=== PATIENT | male | born 1975 | race Caucasian/White ===

== ENCOUNTER 2017-01-20 21:00 | Inpatient (IN) | payer SELFPAY ==
--- NOTE | ~2017-01-20 | HP ---
History And Physical [place] [id number] [facility] [place]. [address] NAME: MIHAELA PLUNKETT : 75 STATUS : ADM Whitney PAT#: [id number] AGE: 41 ADM/REG DATE : 01/20/17 MR#: [id number] REPORT SERV DATE: 01/21/17 DICTATED BY: ESTUARDO MAGAÑA DATE: 01/21/17 REPORT STATUS : Draft TRANSCRIBED BY: MODL DATE: 01/21/17 DATE OF ADMISSION: 01/20/2017 CHIEF COMPLAINT: Abdominal pain, nausea, and vomiting. HISTORY OF PRESENT ILLNESS: This is a 41-year-old male with recurrent episodes of acute pancreatitis due to his alcohol abuse, with a history of uncontrolled hypertension, presents to the emergency room at [facility] with the above-mentioned complaint. History is obtained from the patient and reviewing data available on the [employer] system. According to Mr. Plunkett, he had been in his usual state of health until about two days ago when he started experiencing epigastric and right upper quadrant pain. He is familiar with this pain of pancreatitis since he has had so many previous episodes. He decided to come to the emergency room to be evaluated. In the emergency room, initial workup revealed a CT scan of his abdomen showing features of acute pancreatitis with small pseudocyst in the tail and another small pseudocyst behind the head of the pancreas. His lipase was elevated at 907 as well and Hospitalist Service was asked to admit him for further evaluation and treatment. At the time of my evaluation, he denied any chest pain, palpitations, or orthopnea. He had no cough, hemoptysis, night sweats, or weight loss. He has not had any recent falls or loss of consciousness. No history of fevers or chills, but he did have severe nausea and vomiting. Vomitus was mostly clear, and he had maybe a teaspoon full of blood with one episode. He has not had that since. He denied any hematochezia or hematuria. No other history of recent travel or exposures other than those mentioned above. PAST MEDICAL HISTORY: Significant for chronic recurrent alcoholic pancreatitis, alcohol abuse, tobacco use, and uncontrolled hypertension. SOCIAL HISTORY: He has about [id number] history of smoking, continues to do so. He drinks beer mostly, but has binge drinking episodes. He went on a four-day binge drinking episode where he drank three or four 750 mL bottles of vodka. He denied any other recreational drug use. 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 FAMILY HISTORY: Noncontributory. MEDICATIONS: At home were reviewed by me in the chart today and reordered by me. REVIEW OF SYSTEMS: As in history of present illness. All other systems were reviewed in detail and quite unremarkable. PHYSICAL EXAMINATION: GENERAL: This is a pleasant 41-year-old, not in any acute distress. History And Physical [address] [address] NAME: MIHAELA PLUNKETT : 75 STATUS : ADM Whitney PAT#: [id number] AGE: 41 ADM/REG DATE : 01/20/17 MR#: [id number] REPORT SERV DATE: 01/21/17 DICTATED BY: ESTUARDO MAGAÑA DATE: 01/21/17 REPORT STATUS : Draft TRANSCRIBED BY: NADINE DATE: 01/21/17 HEENT: Head is atraumatic, normocephalic. He is alert, awake, oriented to time, place, and person. His pupils are equal and reacting to light and accommodating. External ocular muscles are intact. Membranes are moist and pink. Sclerae are nonicteric. NECK: Supple with no jugular venous distention, lymphadenopathy, or thyromegaly. LUNGS: Clear to auscultation with no wheezes, rubs, or crackles. HEART: Heart sounds were regular with no murmurs, rubs, or gallops. ABDOMEN: Soft. There is tenderness in both the epigastric and right upper quadrant regions. Has no guarding or rigidity. There is no rebound tenderness. EXTREMITIES: Showed no cyanosis, clubbing, or edema. NEUROLOGIC: Grossly intact although he has a fine tremor what he says is probably due to his alcohol withdrawal. He says his last drink was two days ago. He does appear a little restless and has tremors. VITAL SIGNS: Today showed a temperature of 97.1, pulse 123, respirations 20 a minute, blood pressure was 150/98, and oxygen saturations were 98% breathing 2 L of oxygen via nasal cannula. LABORATORY DATA: Reviewed on the [employer] system showed a sodium of 135, potassium 3.8, chloride 94, CO2 of 28, BUN was 15, with a creatinine of 1.09, and glucose was 131. His alkaline phosphatase was 278, gamma-GT was 259, ALT 129, AST 146. Lipase was 907 today. CBC showed a normal white blood cell count, hemoglobin was 14.8, hematocrit 42.5, and platelet count was 314,000. His prothrombin time and INR were not performed today. Urinalysis did not reveal any gross abnormality at this time. Films of the CT scan of his abdomen and pelvis were reviewed by me on the PACS today and interpreted by me. Official radiology report was also reviewed. There is acute pancreatitis with small pseudocyst near the tail and another pseudocyst behind the head of the pancreas. A 12-lead EKG done in the emergency room was reviewed and interpreted by me. There is sinus rhythm with a rate of [address]-T changes. IMPRESSION: 1. Abdominal pain. 2. Acute pancreatitis with pseudocyst. 3. Intractable nausea and vomiting. 4. Uncontrolled hypertension. 5. Alcohol abuse. 6. Chronic alcoholic pancreatitis. 7. Tobacco use. PLAN: We will admit Mr. Plunkett to a telemetry bed for close monitoring. We will start him on aggressive volume resuscitation, keep him n.p.o. for now, and provide intravenous Zofran and Phenergan on an as-needed basis. We will start him on pain control with intravenous Dilaudid in small doses on an as-needed basis. We will also start him on blood pressure control with his home medications and provide intravenous hydralazine as well. We will place him on unfractionated heparin for DVT prophylaxis while here. He will be placed on alcohol withdrawal protocol. We will also go ahead and consult Gastroenterology Service to [facility] [address] [address] NAME: MIHAELA PLUNKETT : 75 STATUS : ADM Whitney PAT#: [id number] AGE: 41 ADM/REG DATE : 01/20/17 MR#: [id number] REPORT SERV DATE: 01/21/17 DICTATED BY: ESTUARDO MAGAÑA DATE: 01/21/17 REPORT STATUS : Draft TRANSCRIBED BY: MODL DATE: 01/21/17 see him as well. I have discussed the above plans with the patient, his questions were answered, and he is agreeable to the above recommendations. Hospitalist Service will be following him during his stay here. DICTATION ENDS HERE. /NADINE Estuardo Magaña M.D. / [id number] CC: Olivia Ga M.D.
--- NOTE | ~2017-01-20 | CN ---
Consultation Report [facility] [address] [place]. [address] NAME: MIHAELA PLUNKETT : 75 STATUS : ADM Whitney PAT#: [id number] AGE: 41 ADM/REG DATE : 01/20/17 MR#: [id number] REPORT SERV DATE: 01/22/17 DICTATED BY: SALOME HERRON DATE: 01/22/17 REPORT STATUS : Draft TRANSCRIBED BY: MODL DATE: 01/22/17 GI CONSULTATION DATE OF CONSULTATION: 01/21/2017 REASON FOR CONSULTATION: Pancreatitis. HISTORY OF PRESENT ILLNESS: Mr. Plunkett is a 41-year-old male with a history of alcohol and tobacco use and recurrent pancreatitis. He is also status post cholecystectomy. He came in with abdominal pain, nausea, vomiting, found to have a lipase of 2566. His hematocrit is 38.9, BUN is 19, bilirubin 2, AST 146, ALT 129, alkaline phosphatase 278. PAST MEDICAL HISTORY: Pancreatitis, recurrent; splenic hematoma. PAST SURGICAL HISTORY: Cholecystectomy. SOCIAL HISTORY: Alcohol and tobacco use, current. FAMILY HISTORY: Father with alcoholism and pancreatitis. Sister also with pancreatitis. MEDICATIONS: Reviewed. ALLERGIES: REVIEWED. PHYSICAL EXAMINATION: Patient is afebrile. His vital signs are stable. GENERAL: The patient is awake, alert, and oriented, in mild distress secondary to his abdominal discomfort. HEENT: Atraumatic, normocephalic. Minimal scleral icterus. Mucous membranes moist. CARDIAC: S1, S2. CHEST: Clear. ABDOMEN: Soft, tender to palpation diffusely with some voluntary guarding. No rebound. Bowel sounds normoactive. LABORATORY DATA: WBC 9.1, hemoglobin 13.3, hematocrit 38.9, platelets 288. Sodium 137, potassium 4.1, chloride 99, bicarb 30, BUN 19, creatinine 1.01, glucose 134. Bilirubin 2, AST 146, ALT 129, alkaline phosphatase 278, lipase 2566. IMPRESSION AND PLAN: Acute pancreatitis, most likely related to his alcohol and tobacco use. No evidence of obstruction. Check triglycerides for completeness. The patient denies any new medication. I will go ahead and increase his IV fluids to 250 to 300 mL an hour. He should be able to tolerate this fluid resuscitation. Continue to trend liver enzymes as well as his lipase clinical picture. Keep n.p.o. for now. Can consider advancing to clears once he is clinically improved, but be also cautious of the Consultation Report [place] [id number] [place] [address] NAME: MIHAELA PLUNKETT : 75 STATUS : ADM Whitney PAT#: [id number] AGE: 41 ADM/REG DATE : 01/20/17 MR#: [id number] REPORT SERV DATE: 01/22/17 DICTATED BY: SALOME HERRON DATE: 01/22/17 REPORT STATUS : Draft TRANSCRIBED BY: MODL DATE: 01/22/17 patient going into DT at some point of his hospitalization . /MODL Salome Herron MD / [id number] CC: Dallin Simons M.D.
--- NOTE | ~2017-01-20 | DS ---
Discharge Summary [facility] [address] [facility] [place]. [address] NAME: MIHAELA WALL : 75 STATUS : DIS IN PAT#: [id number] AGE: 41 ADM/REG DATE : 01/20/17 MR#: [id number] REPORT SERV DATE: 01/26/17 DICTATED BY: ZIYAD LOZADA DATE: 01/25/17 REPORT STATUS : Draft TRANSCRIBED BY: MODL DATE: 01/25/17 ADMISSION DATE: 01/20/2017 DISCHARGE DATE: 01/25/2017 DISCHARGE DIAGNOSES: 1. Nssal-xm-tuhtosd pancreatitis. 2. Pseudocyst with mild enlargement from prior CT scan. 3. Alcoholism with withdrawal, currently resolved. 4. Hypertension. 5. 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 6. Uncontrolled hypertension, currently stable on oral clonidine. CONSULTANTS DURING THIS HOSPITALIZATION: Dr. Annette Herron of Gastroenterology. INVASIVE PROCEDURES DONE DURING THIS HOSPITALIZATION: None. BRIEF HISTORY OF PRESENT ILLNESS: The patient is a 41-year-old white male, who presented to the hospital with abdominal pain, vomiting, and triaged in the emergency room on 01/20/2017 at 2100 hours. He was referred to the Hospitalist Service for acute pancreatitis. For detailed history and physical exam, please see note dictated by Dr. Estuardo Ward on 01/21/2017. HOSPITAL COURSE: After being admitted to the hospital, this patient was kept n.p.o. He was given aggressive IV fluids. For his alcoholism, he was kept on detox protocol as well as thiamine and folate. His liver function studies were significantly elevated. Dr. Herron saw the patient in consultation and recommended continued fluids, advancing diet as tolerated once his numbers got better and monitoring his liver function studies. We have continued to do so over the last five days. This patient's overall condition has improved. We discontinued his IV fluids. He is now tolerating a GI soft diet without any abdominal pain, nausea, or vomiting. I did repeat a CT of his abdomen and pelvis, which showed significant pancreatic edema with chronic pancreatitis and a chronic pseudocyst that is slightly larger than noted on the CT in 02/2016. On the last CT, the pseudocyst measured 5 cm in size. I discussed this with Dr. Annette Herron. She is confident that this will resolve if the patient remains abstinent of alcohol and continues on a low-fat diet. She will follow the patient up in the office. This patient has no other resources. We will try to arrange followup also in the [facility] for further medical care. He will also need antihypertensive. We will continue his clonidine at 0.1 mg three times daily. We will give him a prescription and tyler at least one month of medication from the hospital. He remained stable otherwise and is being discharged in stable condition. DISCHARGE DISPOSITION: Home. DISCHARGE ACTIVITY: As tolerated. DISCHARGE DIET: Low fat, GI soft diet. Discharge Summary [place] [id number] [facility] [place]. [address] NAME: MIHAELA WALL : 75 STATUS : DIS IN PAT#: [id number] AGE: 41 ADM/REG DATE : 01/20/17 MR#: [id number] REPORT SERV DATE: 01/26/17 DICTATED BY: ZIYAD LOZADA DATE: 01/25/17 REPORT STATUS : Draft TRANSCRIBED BY: NADINE DATE: 01/25/17 DISCHARGE MEDICATIONS: Protonix 40 mg once daily, Klonopin 0.1 mg three times daily. DISCHARGE FOLLOWUP: With Dr. Annette Herron in two to three weeks, with [facility] in one to two weeks. MICHAEL/NADINE Ziyad Lozada M.D. / [id number] CC: Ziyad Lozada M.D. [facility] Annette Herron MD
[~2017-01-20 21:00] MED LIST: ACET500CAP PO; GOODY'S EX-STR1 EAC1 PO; GOODY'S HEADAC1 EACH PO; PCET PO; PEPTO BISMOL UD30 ML PO; PHENERGAN PO; V2 PO; VITAMIN C PO; ZANTAC PO; ZANTAC150 MG PO; ZOFRAN ODT4 MG PO
[2017-01-20 21:01] LABS: WBC (NOT ORDERED) (RFLEX) 0 (0-5)
[2017-01-20 21:06] LABS: BASOPHILS 0.3 %; BASOPHILS ABSOLUTE 0.03 10/3/uL (0.0-0.16); EOSINOPHILS 1.2 %; EOSINOPHILS ABSOLUTE 0.11 10/3/uL (0.0-0.53); ER CBC TAT 0 Hrs 08 Mins; HEMATOCRIT 42.5 % (40.0-51.0); HEMOGLOBIN 14.8 g/dL (13.6-17.8); LYMPHOCYTES 14.7 %; LYMPHOCYTES ABSOLUTE 1.38 10/3/uL (0.67-4.30); MANUAL DIFF NO %; MEAN CORPUS HGB CONC 34.8 g/dL (32.0-36.0); MEAN CORPUSCULAR HEMOGLOB 34.6 pg (26.0-34.0); MEAN CORPUSCULAR VOLUME 99.3 fL (80-100); MEAN PLATELET VOLUME 9.6 fL (9.2-13.0); MONOCYTES 13.5 %; MONOCYTES ABSOLUTE 1.27 10/3/uL (0.21-1.20); NEUTROPHILS 70.3 %; NEUTROPHILS ABSOLUTE 6.61 10/3/uL (2.02-8.40); PLATELET COUNT 314 10/3/uL (150-400); RBC DISTRIBUTION WIDTH 15.2 % (12.0-16.0); RED CELL COUNT 4.28 10/6/uL (4.7-6.1); WHITE BLOOD CELLS 9.4 10/3/uL (4.5-10.5)
[2017-01-20 21:10] LABS: ASCORBIC ACID (UR NOT ORDER) NEG (NEG); BILIRUBIN, URINE MODERATE (NEG); ER URINALYSIS TAT 0 Hrs 12 Mins; KETONE, URINE 20 MG/DL (NEG); LEUKOCYTE ESTERASE(NOT OR NEG (NEG); NITRITE (URINE) NEG (NEG)
[2017-01-20 21:22] LABS: CHLORIDE, SERUM 94 MMOL/L (96-112); CO2 (CARBON DIOXIDE) 28 MMOL/L (24-34); CREATININE 1.09 MG/DL (0.70-1.30); GFR AFRICAN AMERICAN 97 ML/MIN (>=60); GFR NON AFRICAN AMERICAN 84 ML/MIN (>=60); GLUCOSE, SERUM 131 MG/DL (60-99); POTASSIUM, SERUM 3.8 MMOL/L (3.5-5.3); SGOT(AST) 146 U/L (5-40); SGPT(ALT) 129 U/L (5-65); SODIUM, SERUM 135 MMOL/L (135-148)
[2017-01-20 21:23] LABS: A/G RATIO 0.8 (0.7-1.9); ALBUMIN 3.9 G/DL (3.5-5.0); ALKALINE PHOSPHATASE 278 U/L (45-117); BUN (BLOOD UREA NITROGEN) 15 MG/DL (6-23); CALCIUM, SERUM 9.6 MG/DL (8.5-10.4); GLOBULIN 4.8 G/DL (2.5-4.1); TOTAL PROTEIN 8.7 G/DL (6.0-8.5)
[2017-01-21 07:55] LABS: BASOPHILS 0.2 %; BASOPHILS ABSOLUTE 0.02 10/3/uL (0.0-0.16); EOSINOPHILS 0 %; HEMATOCRIT 38.9 % (40.0-51.0); HEMOGLOBIN 13.3 g/dL (13.6-17.8); IMMATURE GRANULOCYTES 0.3 %; IMMATURE GRANULOCYTES ABSOLUTE 0.03 10/3/uL (0.0-0.11); LYMPHOCYTES 11.6 %; LYMPHOCYTES ABSOLUTE 1.15 10/3/uL (0.67-4.30); MEAN CORPUS HGB CONC 34.2 g/dL (32.0-36.0); MEAN CORPUSCULAR HEMOGLOB 34.2 pg (26.0-34.0); MEAN PLATELET VOLUME 9.8 fL (9.2-13.0); MONOCYTES 9.7 %; MONOCYTES ABSOLUTE 0.96 10/3/uL (0.21-1.20); NEUTROPHILS 78.2 %; NEUTROPHILS ABSOLUTE 7.73 10/3/uL (2.02-8.40); PLATELET COUNT 288 10/3/uL (150-400); RED CELL COUNT 3.89 10/6/uL (4.7-6.1); WHITE BLOOD CELLS 9.9 10/3/uL (4.5-10.5)
[2017-01-21 08:00] LABS: CALCIUM, SERUM 8.7 MG/DL (8.5-10.4); CHLORIDE, SERUM 99 MMOL/L (96-112); CO2 (CARBON DIOXIDE) 30 MMOL/L (24-34); CREATININE 1.01 MG/DL (0.70-1.30); GFR AFRICAN AMERICAN 107 ML/MIN (>=60); GFR NON AFRICAN AMERICAN 92 ML/MIN (>=60); GLUCOSE, SERUM 134 MG/DL (60-99); POTASSIUM, SERUM 4.1 MMOL/L (3.5-5.3); SODIUM, SERUM 137 MMOL/L (135-148)
[2017-01-21 08:02] LABS: BUN (BLOOD UREA NITROGEN) 19 MG/DL (6-23); PHOSPHORUS, SERUM 5.1 MG/DL (2.5-4.5)
[2017-01-21 08:03] LABS: MANUAL DIFF NO %
[2017-01-22 08:42] LABS: BASOPHILS 0 %; EOSINOPHILS 0.1 %; EOSINOPHILS ABSOLUTE 0.01 10/3/uL (0.0-0.53); HEMATOCRIT 38.8 % (40.0-51.0); HEMOGLOBIN 13.3 g/dL (13.6-17.8); IMMATURE GRANULOCYTES 0.3 %; IMMATURE GRANULOCYTES ABSOLUTE 0.04 10/3/uL (0.0-0.11); LYMPHOCYTES 5.3 %; LYMPHOCYTES ABSOLUTE 0.82 10/3/uL (0.67-4.30); MEAN CORPUS HGB CONC 34.3 g/dL (32.0-36.0); MEAN CORPUSCULAR HEMOGLOB 34.4 pg (26.0-34.0); MEAN CORPUSCULAR VOLUME 100.3 fL (80-100); MEAN PLATELET VOLUME 10.5 fL (9.2-13.0); MONOCYTES 7.1 %; NEUTROPHILS 87.2 %; NEUTROPHILS ABSOLUTE 13.42 10/3/uL (2.02-8.40); PLATELET COUNT 234 10/3/uL (150-400); RBC DISTRIBUTION WIDTH 15.1 % (12.0-16.0); RED CELL COUNT 3.87 10/6/uL (4.7-6.1); WHITE BLOOD CELLS 15.4 10/3/uL (4.5-10.5)
[2017-01-22 08:57] LABS: CALCIUM, SERUM 8.1 MG/DL (8.5-10.4); CHLORIDE, SERUM 97 MMOL/L (96-112); CO2 (CARBON DIOXIDE) 30 MMOL/L (24-34); CREATININE 0.58 MG/DL (0.70-1.30); GFR AFRICAN AMERICAN 147 ML/MIN (>=60); GFR NON AFRICAN AMERICAN 127 ML/MIN (>=60); POTASSIUM, SERUM 3.8 MMOL/L (3.5-5.3); SGOT(AST) 422 U/L (5-40); SGPT(ALT) 205 U/L (5-65); SODIUM, SERUM 134 MMOL/L (135-148)
[2017-01-22 08:58] LABS: A/G RATIO 0.8 (0.7-1.9); ALBUMIN 2.9 G/DL (3.5-5.0); ALKALINE PHOSPHATASE 415 U/L (45-117); BUN (BLOOD UREA NITROGEN) 10 MG/DL (6-23); DIRECT BILIRUBIN 4.1 MG/DL (0.0-0.4); GLOBULIN 3.8 G/DL (2.5-4.1); GLUCOSE, SERUM 105 MG/DL (60-99); INDIRECT BILIRUBIN(NOT ORDER) 1.5 MG/DL (0.1-0.9); TOTAL BILIRUBIN 5.6 MG/DL (0-1.2); TOTAL PROTEIN 6.7 G/DL (6.0-8.5)
[2017-01-23 06:38] LABS: BASOPHILS 0.1 %; BASOPHILS ABSOLUTE 0.01 10/3/uL (0.0-0.16); EOSINOPHILS 0.3 %; EOSINOPHILS ABSOLUTE 0.04 10/3/uL (0.0-0.53); IMMATURE GRANULOCYTES 0.3 %; IMMATURE GRANULOCYTES ABSOLUTE 0.04 10/3/uL (0.0-0.11); LYMPHOCYTES 7.8 %; LYMPHOCYTES ABSOLUTE 1.11 10/3/uL (0.67-4.30); MEAN CORPUS HGB CONC 34.5 g/dL (32.0-36.0); MEAN CORPUSCULAR HEMOGLOB 34.3 pg (26.0-34.0); MEAN CORPUSCULAR VOLUME 99.4 fL (80-100); MEAN PLATELET VOLUME 10.7 fL (9.2-13.0); MONOCYTES 9.5 %; MONOCYTES ABSOLUTE 1.35 10/3/uL (0.21-1.20); NEUTROPHILS ABSOLUTE 11.61 10/3/uL (2.02-8.40); PLATELET COUNT 195 10/3/uL (150-400); WHITE BLOOD CELLS 14.2 10/3/uL (4.5-10.5)
[2017-01-23 06:40] LABS: HEMATOCRIT 34.8 % (40.0-51.0); MANUAL DIFF NO %
[2017-01-23 06:55] LABS: A/G RATIO 0.7 (0.7-1.9); ALBUMIN 2.5 G/DL (3.5-5.0); CALCIUM, SERUM 7.9 MG/DL (8.5-10.4); CHLORIDE, SERUM 97 MMOL/L (96-112); CO2 (CARBON DIOXIDE) 30 MMOL/L (24-34); CREATININE 0.47 MG/DL (0.70-1.30); GFR AFRICAN AMERICAN 160 ML/MIN (>=60); GFR NON AFRICAN AMERICAN 138 ML/MIN (>=60); GLOBULIN 3.7 G/DL (2.5-4.1); GLUCOSE, SERUM 91 MG/DL (60-99); POTASSIUM, SERUM 3.9 MMOL/L (3.5-5.3); SGOT(AST) 161 U/L (5-40); SGPT(ALT) 148 U/L (5-65); SODIUM, SERUM 134 MMOL/L (135-148); TOTAL BILIRUBIN 5.3 MG/DL (0-1.2); TOTAL PROTEIN 6.2 G/DL (6.0-8.5)
[2017-01-23 06:56] LABS: ALKALINE PHOSPHATASE 360 U/L (45-117); BUN (BLOOD UREA NITROGEN) 6 MG/DL (6-23); GAMMA GT 475 U/L (5-85)
[2017-01-24 06:29] LABS: BASOPHILS 0.1 %; BASOPHILS ABSOLUTE 0.01 10/3/uL (0.0-0.16); EOSINOPHILS 0.7 %; EOSINOPHILS ABSOLUTE 0.06 10/3/uL (0.0-0.53); HEMOGLOBIN 10.9 g/dL (13.6-17.8); IMMATURE GRANULOCYTES 0.2 %; IMMATURE GRANULOCYTES ABSOLUTE 0.02 10/3/uL (0.0-0.11); LYMPHOCYTES 16.1 %; LYMPHOCYTES ABSOLUTE 1.38 10/3/uL (0.67-4.30); MEAN CORPUS HGB CONC 35.3 g/dL (32.0-36.0); MEAN CORPUSCULAR HEMOGLOB 34.3 pg (26.0-34.0); MEAN CORPUSCULAR VOLUME 97.2 fL (80-100); MEAN PLATELET VOLUME 10.1 fL (9.2-13.0); MONOCYTES ABSOLUTE 0.86 10/3/uL (0.21-1.20); NEUTROPHILS 72.9 %; NEUTROPHILS ABSOLUTE 6.26 10/3/uL (2.02-8.40); PLATELET COUNT 174 10/3/uL (150-400); RED CELL COUNT 3.18 10/6/uL (4.7-6.1); WHITE BLOOD CELLS 8.6 10/3/uL (4.5-10.5)
[2017-01-24 06:31] LABS: HEMATOCRIT 30.9 % (40.0-51.0); MANUAL DIFF NO %
[2017-01-24 06:47] LABS: A/G RATIO 0.6 (0.7-1.9); ALBUMIN 2.3 G/DL (3.5-5.0); ALKALINE PHOSPHATASE 293 U/L (45-117); BUN (BLOOD UREA NITROGEN) 4 MG/DL (6-23); CALCIUM, SERUM 7.8 MG/DL (8.5-10.4); CHLORIDE, SERUM 101 MMOL/L (96-112); CO2 (CARBON DIOXIDE) 29 MMOL/L (24-34); CREATININE 0.47 MG/DL (0.70-1.30); GFR AFRICAN AMERICAN 160 ML/MIN (>=60); GFR NON AFRICAN AMERICAN 138 ML/MIN (>=60); GLOBULIN 3.8 G/DL (2.5-4.1); GLUCOSE, SERUM 101 MG/DL (60-99); POTASSIUM, SERUM 3.1 MMOL/L (3.5-5.3); SGOT(AST) 59 U/L (5-40); SGPT(ALT) 102 U/L (5-65); SODIUM, SERUM 137 MMOL/L (135-148); TOTAL BILIRUBIN 1.6 MG/DL (0-1.2); TOTAL PROTEIN 6.1 G/DL (6.0-8.5)
[2017-01-25 06:08] LABS: BASOPHILS 0.4 %; BASOPHILS ABSOLUTE 0.03 10/3/uL (0.0-0.16); EOSINOPHILS 1.6 %; EOSINOPHILS ABSOLUTE 0.12 10/3/uL (0.0-0.53); HEMOGLOBIN 11.7 g/dL (13.6-17.8); IMMATURE GRANULOCYTES 0.3 %; IMMATURE GRANULOCYTES ABSOLUTE 0.02 10/3/uL (0.0-0.11); LYMPHOCYTES 18.4 %; LYMPHOCYTES ABSOLUTE 1.35 10/3/uL (0.67-4.30); MEAN CORPUS HGB CONC 34.4 g/dL (32.0-36.0); MEAN CORPUSCULAR VOLUME 98.8 fL (80-100); MEAN PLATELET VOLUME 10.6 fL (9.2-13.0); MONOCYTES 13.4 %; MONOCYTES ABSOLUTE 0.98 10/3/uL (0.21-1.20); NEUTROPHILS 65.9 %; NEUTROPHILS ABSOLUTE 4.83 10/3/uL (2.02-8.40); PLATELET COUNT 219 10/3/uL (150-400); RBC DISTRIBUTION WIDTH 14.9 % (12.0-16.0); RED CELL COUNT 3.44 10/6/uL (4.7-6.1); WHITE BLOOD CELLS 7.3 10/3/uL (4.5-10.5)
[2017-01-25 06:14] LABS: MANUAL DIFF NO %
[2017-01-25 06:28] LABS: ALBUMIN 2.6 G/DL (3.5-5.0); ALKALINE PHOSPHATASE 293 U/L (45-117); BUN (BLOOD UREA NITROGEN) 3 MG/DL (6-23); CALCIUM, SERUM 8.5 MG/DL (8.5-10.4); CHLORIDE, SERUM 98 MMOL/L (96-112); CO2 (CARBON DIOXIDE) 29 MMOL/L (24-34); CREATININE 0.51 MG/DL (0.70-1.30); DIRECT BILIRUBIN 0.6 MG/DL (0.0-0.4); GFR AFRICAN AMERICAN 155 ML/MIN (>=60); GFR NON AFRICAN AMERICAN 134 ML/MIN (>=60); GLUCOSE, SERUM 101 MG/DL (60-99); INDIRECT BILIRUBIN(NOT ORDER) 0.6 MG/DL (0.1-0.9); PHOSPHORUS, SERUM 3.1 MG/DL (2.5-4.5); POTASSIUM, SERUM 3.5 MMOL/L (3.5-5.3); SGOT(AST) 64 U/L (5-40); SGPT(ALT) 97 U/L (5-65); SODIUM, SERUM 134 MMOL/L (135-148); TOTAL BILIRUBIN 1.2 MG/DL (0-1.2); TOTAL PROTEIN 6.9 G/DL (6.0-8.5)
[2017-01-25] MEDS ORDERED: PROTONIX PO (11:19)
[2017-01-25] MEDS ORDERED: CAT1 PO (11:20)
== END 2017-01-25 13:46 | disposition home or self-care (01) | DRG 439 ==
LOC: ER 21:00 → 6NO 23:59
PROVIDERS: Emergency Medicine; Internal Medicine; Internal Medicine Gastroenterology; Internal Medicine Pulmonary Disease
DX: K85.20 Alcohol induced acute pancreatitis without necrosis or infection (principal); K86.3 Pseudocyst of pancreas; K70.10 Alcoholic hepatitis without ascites; I10 Essential (primary) hypertension; F10.230 Alcohol dependence with withdrawal, uncomplicated; R52 Pain, unspecified; K86.0 Alcohol-induced chronic pancreatitis; Z90.49 Acquired absence of other specified parts of digestive tract; F17.210 Nicotine dependence, cigarettes, uncomplicated
CPT/HCPCS: 74177; 76700; 80048; 80053; 80069; 80076; 81001; 82150; 82977; 83690; 83735; 84100; 84132; 85025; 93005; 94640; 96374; 96375; 99285; A9270-GY; C9113; J0360; J1170; J2405